=== PATIENT | male | born 1945 | race Caucasian/White ===

== ENCOUNTER → 2021-02-28 | Outpatient (CLI) | payer OTHER | LOC: SJCVC 12:46 | PROVIDERS: ATTEND Internal Medicine Cardiovascular Disease | DX: R00.1 Bradycardia, unspecified (principal); I10 Essential (primary) hypertension; E78.00 Pure hypercholesterolemia, unspecified; R07.9 Chest pain, unspecified; R06.02 Shortness of breath; R53.83 Other fatigue; R42 Dizziness and giddiness; Z85.46 Personal history of malignant neoplasm of prostate; Z72.89 Other problems related to lifestyle; F17.290 Nicotine dependence, other tobacco product, uncomplicated; Z79.82 Long term (current) use of aspirin; Z79.899 Other long term (current) drug therapy ==

== ENCOUNTER → 2021-02-28 | Outpatient (CLI) | payer OTHER | LOC: CAT 14:33 | PROVIDERS: ATTEND Internal Medicine Cardiovascular Disease | DX: Z13.6 Encounter for screening for cardiovascular disorders (principal) ==

== ENCOUNTER → 2021-03-01 | Outpatient (CLI) | payer OTHER ==
--- NOTE | 2021-03-01 11:51 | 2DMMODE ---
[facility] [place] [address] 2 D/M-MODE ECHOCARDIOGRAM Name: BETTIE SANCHEZ Room #: REG [facility] SandiAlbino#: [id number] Admission: 03/01/21 Attend Phys: Marko Todd MD, Discharge: Date of : 45 Report #: [id number] THIS REPORT FOR: cc: Robert Iniguez MD, John L. MD Mancuso, Gerald M. MD [facility] ~ APPROVED REPORT Study performed: 03/01/2021 10:25:11 EXAM: Comprehensive 2D, Doppler, and color-flow Echocardiogram Patient Location: Out-Patient Status: routine BSA: 2.00 HR: 47 bpm BP: 140/70 mmHg Rhythm: SINUS DARIN Other Information Study Quality: Excellent Indications HTN, CP, SOB. 2D Dimensions RVDd: 25.77 mm IVSd: 10.56 (7-11mm) LVOT Diam: 22.13 (18-24mm) LVDd: 40.84 mm PWd: 9.51 (7-11mm) Ascending Ao: 41.00 (22-36mm) LVDs: 32.39 (25-40mm) Left Atrium: 37.66 (27-40mm) Aortic Root: 37.76 mm Volumes Left Atrial Volume (Systole) Single Plane 4CH: 40.80 mL Single Plane 2CH: 46.44 mL LA ESV Index: 24.00 mL/m2 Aortic Valve AoV Peak Wilman.: 1.03 m/s AO Peak Gr.: 4.20 mmHg LVOT Max P.64 mmHg LVOT Max V: 0.81 m/s JOSELITO Vmax: 3.05 cm2 [facility] [address] [address] 2 D/M-MODE ECHOCARDIOGRAM Name: BETTIE SANCHEZ Room #: REG CL Kelly#: [id number] Admission: 03/01/21 Attend Phys: Marko Todd, Discharge: Date of : 45 Report #: [id number] Mitral Valve E/A Ratio: 1.3 MV Decel. Time: 224.43 ms MV E Max Wilman.: 0.63 m/s MV A Wilman.: 0.47 m/s MV PHT: 65.08 ms IVRT: 101.50 ms Pulmonary Valve PV Peak Wilman.: 0.85 m/s PV Peak Gr.: 2.91 mmHg Pulmonary Vein P Vein S: 0.55 m/s P Vein A: 0.27 m/s P Vein D: 0.50 m/s P Vein A Dur.: 161.5 msec P Vein S/D Ratio: 1.10 Tricuspid Valve TR Peak Wilman.: 2.32 m/s RAP Estimate: 5.00 mmHg TR Peak Gr.: 22.00 mmHg PA Pressure: 27.00 mmHg Left Ventricle The left ventricle is normal size. There is normal LV segmental wall motion. There is normal left ventricular wall thickness. Left ventricular systolic function is normal. LVEF is 60%. Moderate diastolic dysfunction is present (pseudonormal filling). Right Ventricle The right ventricle is normal size. The right ventricular systolic function is normal. Atria The left atrium size is normal. The right atrium size is normal. Aortic Valve The aortic valve is normal in structure. Trace aortic regurgitation. There is no aortic valvular stenosis. Mitral Valve The mitral valve is normal in structure. Mild mitral regurgitation. No evidence of mitral valve stenosis. Tricuspid Valve The tricuspid valve is normal in structure. Trace tricuspid [facility] [address] [place] [address] 2 D/M-MODE ECHOCARDIOGRAM Name: BETTIE SANCHEZ [facility] #: [facility] [id number] Admission: 03/01/21 Attend Phys: Marko Todd, Discharge: Date of : 45 Report #: [id number] regurgitation. Estimated PAP is 27mmHg. Great Vessels The aortic root is normal in size. The ascending aorta is mildly dilated at 4.1cm. IVC is normal in size and collapses >50% with inspiration. Pericardium There is no pericardial effusion. <Conclusion> The left ventricle is normal size. Left ventricular systolic function is normal. LVEF is 60%. Moderate diastolic dysfunction is present (pseudonormal filling). The right ventricle is normal size. The left atrium size is normal. The aortic valve is normal in structure. Trace aortic regurgitation. Mild mitral regurgitation. Trace tricuspid regurgitation. Estimated PAP is 27mmHg. The aortic root is normal in size. There is no pericardial effusion. <ELECTRONICALLY SIGNED> By: Marko Todd MD, FACC 03/01/21 1150 1150 1150 Marko Todd MD, FACC /INF
== END ==
LOC: SJCVCIMAG 10:09 → CV 11:10 → SJCVCIMAG 15:56
PROVIDERS: ATTEND Internal Medicine Cardiovascular Disease
DX: Z01.818 Encounter for other preprocedural examination (principal); J98.11 Atelectasis; K80.20 Calculus of gallbladder without cholecystitis without obstruction; R42 Dizziness and giddiness; I49.3 Ventricular premature depolarization; R53.83 Other fatigue; R07.9 Chest pain, unspecified; R06.00 Dyspnea, unspecified; I10 Essential (primary) hypertension; R06.02 Shortness of breath; I48.91 Unspecified atrial fibrillation; I25.10 Atherosclerotic heart disease of native coronary artery without angina pectoris; Z88.8 Allergy status to other drugs, medicaments and biological substances; Z79.899 Other long term (current) drug therapy

== ENCOUNTER → 2021-03-01 | Outpatient (CLI) | payer OTHER | LOC: CAT 15:27 | PROVIDERS: ATTEND Internal Medicine Cardiovascular Disease | DX: Z88.8 Allergy status to other drugs, medicaments and biological substances (principal); Z79.899 Other long term (current) drug therapy ==

== ENCOUNTER → 2021-03-06 | Outpatient (CLI) | payer OTHER | LOC: SJCVCIMAG 08:41 | PROVIDERS: ATTEND Internal Medicine Cardiovascular Disease | DX: K81.1 Chronic cholecystitis (principal) ==